=== PATIENT | female | born 1985 | race Caucasian/White ===

== ENCOUNTER 2016-06-29 02:34 | Inpatient (IN) | payer BC ==
[2016-06-29] MEDS ORDERED: PRENA1 CHEW TA1.4 M1 PO (04:10)
[2016-06-29 13:21] LABS: BASO % 0.2 % (0-2); HCT-HEMATOCRIT 38.4 % (34.0-49.0); HGB-HEMOGLOBIN 13.3 gm/dl (12.0-15.5); IMMATURE GRANULOCYTES ABSOLUTE 0.19 tho/cmm (0-0.03); IMMATURE GRANULOCYTES PERCENT 0.7 % (0-0.3); MCH (MEAN CORPUSCULAR HGB) 28.9 pg (28.0-32.0); MCHC MEAN CORPUSCULAR HGB CONC 34.6 % (32.0-36.0); MCV (MEAN CELL VOLUME) 83.3 fl (82.0-96.0); MEAN PLATELET VOLUME 10.5 cmc (9.4-12.4); MONO % 5.3 % (0-12); MONOCYTE ABSOLUTE COUNT 1.4 tho/cmm (0.0-1.2); NEUTROPHIL ABSOLUTE COUNT 21.8 tho/cmm (1.6-8.0); NEUTROPHIL-AUTOMATED 21.8 tho/cmm (1.6-8.0); NEUTROPHILS % 85.8 % (40-80); PLATELET COUNT 219 tho/cmm (150-450); RED BLOOD COUNT 4.61 mil/cmm (4.00-5.20); RED CELL DISTRIBUTION WIDTH 13.4 % (12.4-16.4); WHITE BLOOD COUNT 25.4 tho/cmm (4.0-10.0)
[2016-07-03] MEDS ORDERED: PERCOCET 5-3251 EACH PO (09:49)
[2016-07-03] MEDS ORDERED: IBUPROFEN800 M1 PO (09:49)
== END 2016-07-03 16:45 | DRG 766 ==
LOC: LDR 02:34 → OBGE 15:25 → OBGD 07-01 02:59
PROVIDERS: Obstetrics & Gynecology; ADMIT Advanced Practice Midwife
PROC: 10D00Z1 Extraction of Products of Conception, Low, Open Approach (ICD-10-PCS; principal; 2016-06-29)
DX: O34.211 Maternal care for low transverse scar from previous cesarean delivery (principal); F41.9 Anxiety disorder, unspecified; Z3A.41 41 weeks gestation of pregnancy; Z37.0 Single live birth; O33.9 Maternal care for disproportion, unspecified; Z88.8 Allergy status to other drugs, medicaments and biological substances; O99.344 Other mental disorders complicating childbirth; O76 Abnormality in fetal heart rate and rhythm complicating labor and delivery
CPT/HCPCS: J1170; J2270; J2370; J2590; J2791; J3010; J7121